=== PATIENT | male | born 1990 ===

== ENCOUNTER 2023-12-31 18:08 | Emergency (ER) | payer SELFPAY ==
[2023-12-31 19:14] VITALS: BP 135/84; PULSE 78; RESP 16; TEMP 37; O2SAT 99; BMI 22.0
--- NOTE | 2023-12-31 20:32 | ED.GENADULT ---
HPI - General Adult General Chief complaint: Skin/Abscess/Foreign Body Stated complaint: rt arm pit rash? Time Seen by Provider: 12/31/23 23:13 Source: patient, RN notes reviewed and old records reviewed Mode of arrival: ambulatory Limitations: no limitations History of Present Illness ED Provider: Ben HPI narrative: 33-year-old male presents for evaluation of a red raised area to his right armpit. Patient states it has been there for the last week He reports subjective fevers for 2 days. He states that he has pain with any kind of movement of his right arm His pain is 10/10 He reports a history of similar several years ago He is not a diabetic The patient recently relocated to the area from [place] and does not have a primary doctor Related Data Previous Rx's ?Medication ?Instructions ?Recorded cephalexin 500 mg capsule 500 mg PO QID #28 caps 01/01/24 oxycodone 5 mg tablet 5 mg PO Q6H PRN severe pain (scale 01/01/24 score 7-10) #12 tabs Allergies Allergy/AdvReac Type Severity Reaction Status Date / Time No Known Allergies Allergy Verified 12/31/23 19:15 Review of Systems Constitutional: Constitutional: Denies body ache(s), Denies chills and Denies fever(s) Eyes: Eyes: Denies floaters ENT: Denies sore throat Integumentary/Breasts: Skin/Breast: Reports erythema, Reports rash, Reports skin swelling, Reports skin ulcer and Denies wounds PMFSH Social History Social History Advance Directives: No Advance Directives Information Provided: No Do you have a plan to hurt others: No Plan Physical Exam ED Vital Signs: Vital Signs - 24 hr 12/31/23 19:14 12/31/23 23:08 01/01/24 02:13 Temperature 98.6 F 98.8 F 98.7 F Pulse Rate 78 72 73 Respiratory Rate 16 20 20 Blood Pressure 135/84 128/76 126/70 Pulse Oximetry 99 100 100 Oxygen Delivery Method Room Air Room Air Room Air BMI result Body Mass Index 22.0 Const General: healthy appearing, comfortable, no acute distress, alert and awake Nutritional Appearance: well nourished Orientation/consciousness: patient oriented x3 HENMT Head: Yes normocephalic and Yes atraumatic Eyes Eyelids: Yes eyelids normal Conjunctivae: conjunctivae normal Sclerae: sclerae normal Corneas: corneas normal Pupils: Equal, round and reactive pupils present EOM: EOMs intact bilaterally Neck Neck: Yes full ROM Resp Effort & Inspection: normal respiratory effort, able to speak in complete sentences and not labored Skin Other: Patient has about a 5 cm area of erythema with fluctuance to the right axilla. There is no active drainage, but there are 2 central whitish boils. The area is exquisitely tender to palpation General skin exam: elasticity normal Neuro General: patient oriented x3 Cranial nerves: Yes Equal, round and reactive pupils present and Yes Bilaterally intact EOM present Cognition (Neuro): normal cognition Extrem Other: Moving all extremities well without any obvious deformities Course Course Course Narrative: RME: Done by STANTON Vaughan. 33-year-old male presents to the ED for right axillary pain. Patient is sent redness swelling mass with drainage. On exam positive for right axillary abscess that is tender on palpation. May need incision and drainage. Patient to be seen in [facility]. Medications Administered Discontinued Medications Generic Name Dose Route Start Last Admin Trade Name Eliezer PRN Reason Stop Dose Admin Cephalexin HCl 500 mg 01/01/24 01:33 01/01/24 01:56 Cephalexin 500 Mg Capsule PO 01/01/24 01:34 500 mg ONCE ONE Administration Lidocaine/Epinephrine 10 ml 01/01/24 00:41 01/01/24 01:09 Lidocaine Hcl 1%/Epi 1:100,000 10 Ml Vial INFILTRATI 01/01/24 00:42 10 ml ONCE ONE Administration Lorazepam 1 mg 12/31/23 23:48 12/31/23 23:57 Lorazepam 1 Mg Tablet PO 12/31/23 23:49 1 mg ONCE ONE Administration Oxycodone HCl 10 mg 12/31/23 23:48 12/31/23 23:56 Oxycodone Hcl Immed Release 5 Mg Tablet PO 12/31/23 23:49 10 mg ONCE ONE Administration Procedures Abscess I/D Site: other (Right axilla) Side (if applicable): right Sedation/analgesia: other (Ativan and oxycodone p.o.) Local Anesthetic: lidocaine 1% and with epi Amount of anesthesia used (mL): 4 Technique: incised with blade Amount of fluid expressed (mL): 10 Sent for culture/gram staining?: No Irrigation: Yes Packing used?: none Complications: pain Medical Decision Making Medical Decision Making MDM Narrative: 33-year-old male presents for evaluation of an abscess to his right axilla. Patient's vital signs as normal limits, no evidence of sepsis. The patient reports subjective fevers but he is afebrile. See procedure note. The procedure was performed by PA Nara prieto under my direct supervision. The patient tolerated the procedure well, there were no complications Differential Diagnosis Differential Diagnoses: The differential diagnosis associated with the presentation includes Abscess Cellulitis Hidradenitis suppurativa Dermatitis Discharge Plan Discharge Clinical Impression: Abscess of skin or subcutaneous tissue Patient Disposition: Home, Self-Care Instructions: Incision and Drainage (ED) Additional Instructions: Use cephalexin every 6 hours for the next week Apply warm compresses every 4 hours for 10-15 minutes Use ibuprofen/Tylenol for pain. You may use oxycodone for more severe breakthrough pain This may make you drowsy, do not drink alcohol or drive after taking it Follow-up with your primary doctor, return for new or worsening symptoms Prescriptions: New cephalexin 500 mg capsule 500 mg PO QID Qty: 28 0RF oxycodone 5 mg tablet 5 mg PO Q6H PRN (Reason: severe pain (scale score 7-10)) Qty: 12 0RF Rx Instructions: Partial Fill upon patient request. Interventions: ED Discharge Assessment Last Done: 01/01/24 02:13 Discharge Date/Time: 01/01/24 02:14 Print Language: Bangladeshi
[2023-12-31 23:08] VITALS: BP 128/76; PULSE 72; RESP 20; TEMP 37.1; O2SAT 100
[2023-12-31] MEDS: oxyCODONE HCl Immed Release 5 MG TABLET 10 MG PO (23:56)
[2023-12-31] MEDS: LORazepam 1 MG TABLET PO (23:57)
[2024-01-01] MEDS: Lidocaine HCl 1%/Epi 1:100,000 10 ML VIAL INFILTRATI (01:09)
[2024-01-01] MEDS: cephALEXin 500 MG CAPSULE PO (01:56)
[2024-01-01 02:13] VITALS: BP 126/70; PULSE 73; RESP 20; TEMP 37.1; O2SAT 100
== END 2024-01-01 02:14 | disposition home or self-care (01) ==
PROVIDERS: Emergency Provider Internal Medicine
DX: L02.411 Cutaneous abscess of right axilla (principal); R50.9 Fever, unspecified
CPT/HCPCS: 10060; 99283; 99284

== ENCOUNTER 2024-04-05 08:46 | Emergency (ER) | payer MEDICAID, SELFPAY ==
[2024-04-05 09:07] VITALS: BP 98/58; PULSE 80; RESP 16; TEMP 36.8; O2SAT 98; BMI 22.9
[2024-04-05 11:27] VITALS: BP 115/67; PULSE 72; RESP 16; TEMP 37.1; O2SAT 97
--- NOTE | 2024-04-05 11:54 | ED.GENADULT ---
HPI - General Adult General Chief complaint: Skin/Abscess/Foreign Body Stated complaint: sore on top of head Time Seen by Provider: 04/05/24 11:28 Source: patient Mode of arrival: ambulatory Limitations: no limitations History of Present Illness ED Provider: Tank Vaughan PA-C HPI narrative: 33 yold male with no pmh presents to the ED for scalp skin lesion for 3 to 4 days. Patient denies any recent head trauma, being bitten, fever, chills, nausea, vomiting, or dizziness. Patient denies any slurred speech, facial droop, loss of vision, paralysis of extremities. Patient denies any photophobia. Related Data Previous Rx's ?Medication ?Instructions ?Recorded cephalexin 500 mg capsule 500 mg PO QID #28 caps 01/01/24 oxycodone 5 mg tablet 5 mg PO Q6H PRN severe pain (scale 01/01/24 score 7-10) #12 tabs cephalexin 500 mg capsule 500 mg PO QID 7 days #28 caps 04/05/24 doxycycline hyclate 100 mg capsule 100 mg PO BID 7 days #14 caps 04/05/24 mupirocin 2 % topical ointment 1 appl topical TID 7 days #22 grams 04/05/24 naproxen 500 mg tablet 500 mg PO BID PRN pain 7 days #14 04/05/24 tabs Allergies Allergy/AdvReac Type Severity Reaction Status Date / Time No Known Allergies Allergy Verified 04/05/24 09:14 Review of Systems Review of Systems: scalp painful rash Yes all other systems are reviewed and are negative PMFSH Social History Social History Advance Directives: No Do you have a plan to hurt others: No Plan Physical Exam ED Vital Signs: Vital Signs - 24 hr 04/05/24 09:07 04/05/24 11:27 04/05/24 12:31 Temperature 98.2 F 98.8 F 98.8 F Pulse Rate 80 72 72 Respiratory Rate 16 16 16 Blood Pressure 98/58 L 115/67 115/67 Pulse Oximetry 98 97 97 Oxygen Delivery Method Room Air Room Air Room Air BMI result Body Mass Index 22.9 Const General: cooperative, healthy appearing, comfortable, no acute distress, well developed, alert, awake and Physically active Orientation/consciousness: patient oriented x3 HENMT Other: Positive for tenderness on palpation. Negative for any active drainage or foul odor. Positive for erythema. Negative for crepitus, ecchymosis, hematomas. Head: Yes normal to inspection, Yes No palpable skull fracture present, Yes normocephalic, Yes atraumatic, No abrasion, No Acrocyanosis present, No Reyes's sign, No contusion, No cranial bruits, No hematoma, No laceration, No occipital foramen tenderness, No palpable skull fracture, No raccoon eyes, No scalp lesion, No scalp tenderness, No Temporal artery tenderness present and No periorbital ecchymosis Eyes General: appearance normal, both eyes and all related structures Neck Neck: Yes normal visual inspection, Yes full ROM, Yes no lymphadenopathy, Yes no meningeal signs, Yes trachea midline, Yes supple, No anterior neck swelling and No tender Chest Chest palpation & inspection: normal inspection of the chest and normal palpation of entire chest wall Resp Effort & Inspection: normal respiratory effort and able to speak in complete sentences Auscultation: clear to auscultation bilaterally Cardio Jugular venous distension: no JVD Heart sounds: S1 normal heart sound present and S2 normal heart sound present GI Inspection: Yes normal to inspection Palpation (GI): Soft to palpation, not firm, nontender, no guarding and not rigid General: Yes no CVA tenderness Back/Spine/Pelvis Back: no CVA tenderness and No back tenderness Skin General skin exam: no rashes or lesions noted, elasticity normal and turgor normal Neuro General: patient oriented x3, gait normal, tone normal, moves all extremities, Normal light touch and pain sensation, no meningeal signs, no focal motor deficits, CN's II-XI intact bilaterally and normal sensation to monofilament Extrem General: Yes normal to inspection, Yes full ROM, Yes capillary refill normal and Yes normal exam except as noted Psych Appearance: grossly normal, well kempt and not disheveled Medical Decision Making Medical Decision Making MDM Narrative: 33-year-old male presents to ED for painful rash on scalp. Negative for rash on face or nose. Negative for rash on the rest of the body. Negative ecchymosis. Not suspecting herpes shingles. Not suspecting brain bleed or skull fracture. Not suspecting Carmine Gunner syndrome. Physical exam indicate cellulitis versus folliculitis. Patient explained worrisome signs and informed to return to the ED immediately. Not suspecting osteomyelitis Differential Diagnosis Differential Diagnoses: The differential diagnosis associated with the presentation includes (Cellulitis, folliculitis,) Admission/Observation Consideration of admission/observation: Escalation of care including admission/observation considered Independent Historian Clinical information obtained from an independent historian. 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 Return to the ED immediately for worsening rash, increased size, pus discharge, foul odor, eye pain, blurry vision, any rash in the face nose, fever, chills, headache, dizziness, nausea, vomiting, or any other concerning symptoms. Recommend warm compress on the area 4 times a day for 15 minutes. [facility] [place], Prescriptions: New mupirocin 2 % ointment 1 appl topical TID 7 Days Qty: 22 0RF cephalexin 500 mg capsule 500 mg PO QID 7 Days Qty: 28 0RF doxycycline hyclate 100 mg capsule 100 mg PO BID 7 Days Qty: 14 0RF naproxen 500 mg tablet 500 mg PO BID PRN (Reason: pain) 7 Days Qty: 14 0RF No Action cephalexin 500 mg capsule 500 mg PO QID Qty: 28 0RF oxycodone 5 mg tablet 5 mg PO Q6H PRN (Reason: severe pain (scale score 7-10)) Qty: 12 0RF Rx Instructions: Partial Fill upon patient request. Stand Alone Forms: Work/School Release Interventions: ED Discharge Assessment Last Done: 04/05/24 12:31 Discharge Date/Time: 04/05/24 12:31 Print Language: Citizen [place]
[2024-04-05 12:31] VITALS: BP 115/67; PULSE 72; RESP 16; TEMP 37.1; O2SAT 97
== END 2024-04-05 12:31 | disposition home or self-care (01) ==
PROVIDERS: Emergency Provider Emergency Medicine Emergency Medical Services
DX: L03.811 Cellulitis of head [any part, except face] (principal); L73.8 Other specified follicular disorders
CPT/HCPCS: 99283

== ENCOUNTER 2024-05-06 18:03 | Outpatient (REF) | payer MEDICAID, SELFPAY | END 2024-05-06 18:04 | disposition home or self-care (01) | LOC: HO.HHCLNP 18:03 | PROVIDERS: Visit Provider Nurse Practitioner | DX: R21 Rash and other nonspecific skin eruption (principal) | CPT/HCPCS: 87255 ==

== ENCOUNTER 2024-07-24 00:08 | Emergency (ER) | payer MEDICAID, SELFPAY ==
--- NOTE | ~2024-07-24 | XR_ITS ---
CLINICAL HISTORY: pain 1 view abdomen Comparison: None Findings: Borderline cardiomegaly likely accentuated by technique with mild atelectasis in the [id number]. No small bowel dilatation. Severe stool burden is present, including imaged cecum and including distally. Mild osteoarthritis of the imaged left hip. IMPRESSION: 1. No small bowel obstruction. 2. Severe stool burden. This document has been electronically signed by: Jose Swanson MD on 07/24/2024 01:33:07
[2024-07-24 00:13] VITALS: BP 118/67; PULSE 88; RESP 18; TEMP 36.4; O2SAT 98; BMI 23.6
--- NOTE | 2024-07-24 00:44 | ED_ITS ---
HPI - General Adult General Chief complaint: General Medical Stated complaint: Urogenital Male Time Seen by Provider: 07/24/24 00:44 Source: patient Limitations: language barrier History of Present Illness ED Provider: Andie Garcia PA-C HPI narrative: 34-year-old male presents with multiple complaints. Patient states he has had low back pain over the past 3 days. Patient states he thinks he lifted something heavy, prior to the onset of his symptoms. The pain is nonradiating. Denies urinary retention, fecal incontinence, weakness of lower extremities, no paresthesia. Patient also complains of bright red blood per rectum when he has bowel movements. Patient states he is chronically constipated, and strains to have a bowel movement. Patient notes the blood on the toilet paper when he wipes. He is not having large volume bloody bowel movements. Denies rectal pain. No fever. No abdominal pain no nausea vomiting. No abdominal distention. Denies dysuria, no penile discharge. Related Data Previous Rx's ?Medication ?Instructions ?Recorded cephalexin 500 mg capsule 500 mg PO QID #28 caps 01/01/24 oxycodone 5 mg tablet 5 mg PO Q6H PRN severe pain (scale 01/01/24 score 7-10) #12 tabs cephalexin 500 mg capsule 500 mg PO QID 7 days #28 caps 04/05/24 doxycycline hyclate 100 mg capsule 100 mg PO BID 7 days #14 caps 04/05/24 mupirocin 2 % topical ointment 1 appl topical TID 7 days #22 grams 04/05/24 naproxen 500 mg tablet 500 mg PO BID PRN pain 7 days #14 04/05/24 tabs ketorolac 10 mg tablet 10 mg PO Q6H PRN pain #20 tabs 07/24/24 methocarbamol 750 mg tablet 750 mg PO BID PRN pain, moderate 07/24/24 #10 tabs Allergies Allergy/AdvReac Type Severity Reaction Status Date / Time No Known Allergies Allergy Verified 07/24/24 00:15 Review of Systems 2 Review of Systems: Yes all other systems are reviewed and are negative Constitutional: Constitutional: Denies fatigue and Denies fever(s) Cardiovascular: Cardiovascular: Denies chest pain and Denies dyspnea Respiratory: Respiratory: Denies cough and Denies dyspnea Gastrointestinal: Gastrointestinal: Denies abdominal pain, Reports constipation, Denies nausea and Denies vomiting Genitourinary: Genitourinary: Denies dysuria, Denies flank pain and Denies penile discharge Musculoskeletal: Musculoskeletal: Reports back pain, Denies muscle weakness, Denies numbness, Denies radiating pain into limb and Denies tingling Neurologic: Denies numbness and Denies tingling Endocrine: Endocrine: Denies fatigue PMFSH Past Medical History Attestation statement: The following information was validated with the patient. Social History Social History (System 05/10/24 @ 10:37 by Magdalena Wong) Advance Directives: No Advance Directives Information Provided: Yes Do you have a plan to hurt others: No Plan Physical Exam ED Vital Signs: Vital Signs - 24 hr 07/24/24 00:13 Temperature 97.5 F Pulse Rate 88 Respiratory Rate 18 Blood Pressure 118/67 Pulse Oximetry 98 Oxygen Delivery Method Room Air BMI result Body Mass Index 23.6 Const Other: Alert Orientation/consciousness: patient oriented x3 Resp Effort & Inspection: normal respiratory effort Cardio Other: Normal peripheral perfusion Skin Other: Warm dry no rash Neuro General: patient oriented x3, gait normal, no focal motor deficits and CN's II- XI intact bilaterally Psych Other: Cooperative Medical Decision Making Medical Decision Making MDM Narrative: 34-year-old male presents with multiple complaints. Patient states he has had low back pain over the past 3 days. Patient states he thinks he lifted something heavy, prior to the onset of his symptoms. The pain is nonradiating. Denies urinary retention, fecal incontinence, weakness of lower extremities, no paresthesia. Patient also complains of bright red blood per rectum when he has bowel movements. Patient states he is chronically constipated, and strains to have a bowel movement. Patient notes the blood on the toilet paper when he wipes. He is not having large volume bloody bowel movements. Denies rectal pain. No fever. No abdominal pain no nausea vomiting. No abdominal distention. Denies dysuria, no penile discharge. Problem: Constipation History: Per patient I have considered the following differential diagnoses: Constipation, bowel obstruction, lumbar strain, lumbar radiculopathy, cauda equina, hemorrhoids, diverticulosis Plan: In regard to the back pain, patient has lumbar strain without radicular symptoms, he also has no red flag signs symptoms concerning for cord compression. In regard to the constipation, I ordered screening labs and a KUB. To note he has no obstructive symptoms at this time and no abdominal pain. In regard to the bright red blood per rectum, it sounds as if he is having bleeding from straining, he has no rectal pain to suggest a thrombosed hemorrhoid. Again he has no abdominal pain, to suggest diverticulitis. He does not warrant a CT scan at this time. I have independently reviewed the following tests: Labs: No leukocytosis, not anemic, no electrolyte abnormality, urine not infected KUB:IMPRESSION: 1. No small bowel obstruction. 2. Severe stool burden. Lab Data 07/24/24 01:15 07/24/24 01:15 Labs: Lab Results 07/24/24 Range/Units 01:15 WBC 11.0 H (4.8-10.8) X10*3/uL RBC 4.05 L (4.60-5.80) X10*6/uL Hgb 13.1 L (14.0-18.0) g/dl Hct 36.1 L (42.0-52.0) % MCV 89.1 (80.0-98.0) fL MCH 32.3 (27.0-33.0) pg MCHC 36.3 H (31.0-36.0) g/dl RDW 13.1 (11.0-16.0) % Plt Count 338 (160-400) X10*3/uL MPV 8.8 L (9.4-12.4) fL Immature Gran % (Auto) 0.2 (0.0-0.4) % Neut % (Auto) 53.7 (45-73) % Lymph % (Auto) 31.3 (20-40) % [place] % (Auto) 8.2 (2-11) % Eos % (Auto) 6.0 H (0-4) % Baso % (Auto) 0.6 (0-2) % Lymph # (Auto) 3.5 (1.2-4.9) X10*3/uL [place] # (Auto) 0.9 (0.1-1.2) X10*3/uL Eos # (Auto) 0.7 H (0.0-0.4) X10*3/uL Baso # (Auto) 0.1 (0.0-0.2) X10*3/uL Abs Immat Gran (auto) 0.02 (0.00-0.03) X10*3/uL Absolute Neuts (auto) 5.9 (2.0-8.3) x10*3/uL Absolute Nucleated RBC 0.000 (0.0-0.012) X10*3/uL Nucleated RBC % (auto) 0.0 (0.0-0.2) /100WBC Sodium 141 (135-145) mmol/L Potassium 4.0 (3.3-5.1) mmol/L Chloride 103 (96-108) mmol/L Carbon Dioxide 29 (22-29) mmol/L Anion Gap 13 (12-20) BUN 11 (9-16) mg/dL Creatinine 0.73 (0.5-1.4) mg/dL Estim Creat Clear Calc 141.2 Estimated GFR > 60 Random Glucose 92 (60-115) mg/dL Calcium 9.7 (8.4-10.2) mg/dL Total Bilirubin 0.5 (0.0-1.0) mg/dL AST 42 H (5-37) U/L ALT 37 (0-40) U/L Total Protein 7.5 (6.5-8.0) g/dL Albumin 4.2 (3.5-5.0) g/dL Urine Color Dark Yellow Urine Appearance Clear Urine pH 6.0 (5.0-9.0) Ur Specific [place] 1.020 (1.005-1.025) Urine Protein Negative (Neg-Trace) mg/dL Urine Glucose (UA) Negative (Negative) mg/dL Urine Ketones Negative (Negative) mg/dL Urine Blood Negative (Negative) Urine Nitrite Negative (Negative) Ur Leukocyte Esterase Negative (Negative) Discharge Plan Discharge Clinical Impression: Constipation, Osteoarthritis of left hip Patient Disposition: Home, Self-Care Instructions: Constipation (ED), Osteoarthritis (ED) Additional Instructions: All of your labs were normal, your urine is not infected. The x-ray revealed that you were severely constipated. See home care instructions. You need to start using Colace, this is a stool softener, twice a day. In addition you need to use [id number] MiraLax, drank it every hour until you begin having multiple large volume bowel movements, and he began to defecate clear fluid. In regard to the rectal bleeding, you can expect to have bleeding when you strain to have a bowel movement. In regard to your back pain, you were found to have some arthritic changes of the left hip. See home care instructions. Use the ketorolac as directed, this is an anti-inflammatory take it with food. Do not use any other NSAIDs while taking this medication. Use the methocarbamol as needed for further pain, this is a muscle relaxant. This will cause drowsiness do not drive while taking this medication. Follow up with your primary care provider as needed. Prescriptions: New ketorolac 10 mg tablet 10 mg PO Q6H PRN (Reason: pain) Qty: 20 0RF Rx Instructions: maximum total duration of 5 days from all oral, intranasal, or parenteral formulations. The patient had an intramuscular dose of Toradol here in the emergency department. methocarbamol 750 mg tablet 750 mg PO BID PRN (Reason: pain, moderate) Qty: 10 0RF No Action cephalexin 500 mg capsule 500 mg PO QID Qty: 28 0RF oxycodone 5 mg tablet 5 mg PO Q6H PRN (Reason: severe pain (scale score 7-10)) Qty: 12 0RF Rx Instructions: Partial Fill upon patient request. mupirocin 2 % ointment 1 appl topical TID 7 Days Qty: 22 0RF cephalexin 500 mg capsule 500 mg PO QID 7 Days Qty: 28 0RF doxycycline hyclate 100 mg capsule 100 mg PO BID 7 Days Qty: 14 0RF naproxen 500 mg tablet 500 mg PO BID PRN (Reason: pain) 7 Days Qty: 14 0RF Print Language: Greek
[2024-07-24 01:20] LABS: MANUAL DIFF FLAG NO
[2024-07-24 01:21] LABS: Appearance Urine Clear; Basophils Absolute Auto 0.1 X10*3/uL (0.0-0.2); Basophils Percent Auto 0.6 % (0-2); Color Urine Dark Yellow; Eosinophils Absolute Auto 0.7 X10*3/uL (0.0-0.4); Glucose Urine UA Negative (Negative); Hematocrit 36.1 % (42.0-52.0); Hemoglobin 13.1 g/dl (14.0-18.0); Imm Gran Abs Auto 0.02 X10*3/uL (0.00-0.03); Imm Gran Pct Auto 0.2 % (0.0-0.4); Leukocyte Esterase Urine Negative (Negative); Lymphocytes Absolute Auto 3.5 X10*3/uL (1.2-4.9); Lymphocytes Percent Auto 31.3 % (20-40); Mean Corpuscular HGB Conc 36.3 g/dl (31.0-36.0); Mean Corpuscular Hemoglobin 32.3 pg (27.0-33.0); Mean Corpuscular Volume 89.1 fL (80.0-98.0); Mean Platelet Volume 8.8 fL (9.4-12.4); Monocytes Absolute Auto 0.9 X10*3/uL (0.1-1.2); Monocytes Percent Auto 8.2 % (2-11); Neutrophils Absolute Auto 5.9 x10*3/uL (2.0-8.3); Neutrophils Percent Auto 53.7 % (45-73); Nitrite Urine Negative (Negative); Platelet Count 338 X10*3/uL (160-400); Red Blood Count 4.05 X10*6/uL (4.60-5.80); Red Cell Distribution Width 13.1 % (11.0-16.0); Urine Blood Negative (Negative); Urine Ketones Negative (Negative); Urine Protein Negative (Neg-Trace)
[2024-07-24 01:42] LABS: Alanine Aminotransferase 37 U/L (0-40); Albumin Level 4.2 g/dL (3.5-5.0); Anion Gap 13 (12-20); Aspartate Amino Transferase 42 U/L (5-37); Bilirubin Total 0.5 mg/dL (0.0-1.0); Blood Urea Nitrogen 11 mg/dL (9-16); Calcium 9.7 mg/dL (8.4-10.2); Carbon Dioxide 29 mmol/L (22-29); Chloride 103 mmol/L (96-108); Creatinine Clr Calc Pharmacy 141.2; Estimated Glomerular Filt Rate > 60; Glucose Random 92 mg/dL (60-115); Sodium 141 mmol/L (135-145); Total Protein 7.5 g/dL (6.5-8.0)
[2024-07-24] MEDS: methocarbamoL 750 MG TABLET PO (01:54)
[2024-07-24] MEDS: Ketorolac Tromethamine 15 MG/ML VIAL IM (01:54)
[2024-07-24 02:10] LABS: Alkaline Phosphatase 55 U/L (39-117)
[2024-07-24 02:44] VITALS: BP 118/67; PULSE 88; RESP 18; TEMP 36.4; O2SAT 98
== END 2024-07-24 02:46 | disposition home or self-care (01) ==
PROVIDERS: Physician Assistant Medical; Emergency Provider Emergency Medicine
DX: K59.00 Constipation, unspecified (principal); M16.12 Unilateral primary osteoarthritis, left hip; K62.5 Hemorrhage of anus and rectum; Z79.899 Other long term (current) drug therapy
CPT/HCPCS: 36415; 74018; 80053; 81003; 85025; 96372; 99284; J1885

== ENCOUNTER → 2024-07-24 00:45 | Outpatient (BNV) | payer MEDICAID, SELFPAY | PROVIDERS: Emergency Provider Emergency Medicine; Visit Provider Radiology Neuroradiology | DX: R19.5 Other fecal abnormalities (principal) | CPT/HCPCS: 74018 ==

== ENCOUNTER 2024-10-12 21:11 | Emergency (ER) | payer MEDICAID, SELFPAY ==
[2024-10-12 21:24] VITALS: BP 107/72; PULSE 94; RESP 18; TEMP 36.7; O2SAT 99; BMI 24.0
--- NOTE | 2024-10-12 22:31 | ED_ITS ---
HPI - Wound/Laceration General Chief Complaint: Wound/Laceration Stated Complaint: left thumb laceration Time Seen by Provider: 10/12/24 21:55 Source: patient Mode of arrival: ambulatory Limitations: no limitations History of Present Illness ED Provider: Eulalia Zapien NP HPI narrative: Patient is a 34-year-old male presents emergency department for evaluation of accidental laceration to the left thumb from kitchen knife. Reports last tetanus vaccination up-to-date within the past 5 years. Denies use of anticoagulants or known coagulation disorders. Has localized pain to the thumb. Related Data Previous Rx's ?Medication ?Instructions ?Recorded cephalexin 500 mg capsule 500 mg PO QID #28 caps 12/31 oxycodone 5 mg tablet 5 mg PO Q6H PRN severe pain (scale 01/01/24 score 7-10) #12 tabs cephalexin 500 mg capsule 500 mg PO QID 7 days #28 cap s 04/05/24 doxycycline hyclate 100 mg capsule 100 mg PO BID 7 day s #14 caps 04/05/24 mupirocin 2 % topical ointment 1 appl topical TID 7 da ys #22 grams 04/05/24 naproxen 500 mg tablet 500 mg PO BID PRN pain 7 day s #14 04/05/24 tabs ketorolac 10 mg tablet 10 mg PO Q6H PRN pain #20 ta bs 07/24/24 methocarbamol 750 mg tablet 750 mg PO BID PRN pain, mo derate 07/24/24 #10 tabs Allergies Allergy/AdvReac Type Severity Reaction Status Date / Time No Known Allergies Allergy Verified 10/12/24 21:24 Review of Systems Review of Systems: Yes all other systems are reviewed and are negative PMFSH Past Medical History Attestation statement: The following information was validated with the patient. Source: old records reviewed Social History Social History (System 05/10/24 @ 10:37 by Magdalena Wong) Smoked in Last 30 Days: No Use of substances other than those prescribed or required for medical reasons: No Advance Directives: No Advance Directives Information Provided: Yes Physical Exam Vital Signs: Vital Signs: Last Vital Signs Temp 98.0 F 10/12/24 23:22 Pulse 72 10/12/24 23:22 Resp 16 10/12/24 23:22 BP 124/81 10/12/24 23:22 Pulse Ox 99 10/12/24 23:22 O2 Del Method Room Air 10/12/24 23:22 BMI result Body Mass Index 24.0 Appearance: Alert.?Oriented to person, place and time. No acute dis tress.?Normal affect. CVS: Heart sounds normal. Normal heart rate and rhythm.? Pulses normal.?? Respiratory: No respiratory distress.? Lung sounds clear to auscultation bilaterally??? Skin: Skin warm and dry.? Normal skin color.? 1 Cm superficial laceration to the distal tip of the left thumb does not involve the nail bed Extremities: No lower extremity edema.? Neuro: Moves all extremities spontaneously. Sensation intact bilaterally. Ambulates with normal steady gait. Medications Administered Discontinued Medications Generic Name Dose Route Start Last Admin Trade Name Freq PRN Reason Stop Dose Admin Ketorolac Tromethamine 15 mg 10/12/24 22:51 10/12/24 22:57 Ketorolac Tromethamine 15 Mg/Ml Vial IM 10/12/24 22:52 15 mg ONCE ONE Administration Medical Decision Making Medical Decision Making MDM Narrative: Patient is a 34-year-old male who presents emergency department for evaluation of accidental laceration to the distal tip of the left thumb as per HPI. The laceration is very superficial, wound edges are well approximated there was no active bleeding. Was cleansed with saline and Betadine. Remained without active bleeding. Reviewed laceration repair techniques, skin adhesive versus suture repair, patient has elected for skin adhesive which I feel is reasonable given the presentation. Hemostasis remains, adhesive was applied. Tolerated well no complications. Discussed reasons to return including fevers or chills, erythema, swelling, pain, purulence or odor from the wound. All questions answered. Tetanus vaccination was up-to-date. Stable for discharge Differential Diagnosis Differential Diagnoses: The differential diagnosis associated with the presentation includes ( laceration, retained foreign body, tendon or ligamentous injury, active bleeding) External Record Review External record reviewed: Outpatient record Prescription Management I considered prescription management with: Pain Medication Discharge Plan Discharge Clinical Impression: Finger laceration Qualifiers: Encounter type: initial encounter Finger: thumb Damage to nail status: without damage Foreign body presence: without foreign body Laterality: left Qualified Code(s): S61.012A - Laceration without foreign body of left thumb without damage to nail, initial encounter Patient Disposition: Home, Self-Care Instructions: Finger Laceration (ED), Skin Adhesive Care (ED) Prescriptions: No Action cephalexin 500 mg capsule 500 mg PO QID Qty: 28 0RF oxycodone 5 mg tablet 5 mg PO Q6H PRN (Reason: severe pain (scale score 7-10)) Qty: 12 0RF Rx Instructions: Partial Fill upon patient request. mupirocin 2 % ointment 1 appl topical TID 7 Days Qty: 22 0RF cephalexin 500 mg capsule 500 mg PO QID 7 Days Qty: 28 0RF doxycycline hyclate 100 mg capsule 100 mg PO BID 7 Days Qty: 14 0RF naproxen 500 mg tablet 500 mg PO BID PRN (Reason: pain) 7 Days Qty: 14 0RF ketorolac 10 mg tablet 10 mg PO Q6H PRN (Reason: pain) Qty: 20 0RF Rx Instructions: maximum total duration of 5 days from all oral, intranasal, or parenteral formulations. The patient had an intramuscular dose of Toradol here in the emergency department. methocarbamol 750 mg tablet 750 mg PO BID PRN (Reason: pain, moderate) Qty: 10 0RF Referrals: [facility] [Primary Care Provider, Medical] Interventions: ED Discharge Assessment Last Done: 10/13/24 00:00 Print Language: Australian
[2024-10-12] MEDS: Ketorolac Tromethamine 15 MG/ML VIAL IM (22:57)
[2024-10-12 23:22] VITALS: BP 124/81; PULSE 72; RESP 16; TEMP 36.7; O2SAT 99
[2024-10-13] VITALS: BP 124/81; PULSE 72; RESP 16; TEMP 36.7; O2SAT 99
== END 2024-10-13 00:01 | disposition home or self-care (01) ==
PROVIDERS: Emergency Provider Internal Medicine
DX: S61.012A Laceration without foreign body of left thumb without damage to nail, initial encounter (principal); M79.642 Pain in left hand; W26.0XXA Contact with knife, initial encounter; Y93.9 Activity, unspecified; Y92.009 Unspecified place in unspecified non-institutional (private) residence as the place of occurrence of the external cause; Y99.8 Other external cause status
CPT/HCPCS: 12001; 96372; 99284; J1885

== ENCOUNTER 2024-11-10 16:06 | Outpatient (REF) | payer MEDICAID, SELFPAY ==
--- NOTE | ~2024-11-10 | XR_ITS ---
EXAMINATION: XR FOOT, RIGHT CLINICAL INFORMATION: Blunt injury to right foot (5th toe) and metatarsal area. COMPARISON: None available. TECHNIQUE: AP, lateral, and oblique views of the right foot. FINDINGS: There is a mildly angulated and mildly displaced fracture of the proximal metatarsal of the proximal phalanx of the fifth digit. There is overlying soft tissue swelling. There is no additional fracture or focal bone lesion. There is otherwise normal alignment. Normal plantar arch. The midfoot and hindfoot appear normal. XR/XR foot RT min 3V IMPRESSION: 1. Mildly angulated and mildly displaced fracture of the proximal metatarsal of the proximal phalanx of the fifth digit. Electronically signed by: Boom Jorgensen MD 11/10/2024 04:29 PM EDT
--- OUTSIDE RECORDS SUMMARY | 2024-11-10 16:00 | XMS_ITS | Encounter Summary ---
Author Organization [employer] [facility] Address [address] [place] [address] Care Team Providers Care Fpga Engineer Name Role Phone Simi Dawn NP Primary Care Provider [phone] Reason for Visit * Reason Comments Foot Pain Encounter Details Date Type Department Care Team ([facility] Contact Info) Description 11/10/2024 4:00 PM EDT Office Visit [facility] [address] [place] [address] Right foot pain (Primary Dx) Social History Tobacco Use Types Packs/Day Years Used Date Smoking Tobacco: Every Day Cigarettes Passive Smoke Exposure: Past Smokeless Tobacco: Never Tobacco Cessation:Ready to Q uit: Not Asked; Counseling Given: Not Answered Sex and Gender Information Value Date Recorded Sex Assigned at Male 05/06/2024 12:34 PM EST Legal Sex Male 10:41 AM EST Gender Identity Male 05/06/2024 12:34 PM EST Sexual Orientation Don't know 05/06/2024 3: 57 PM EST Sexual Orientation Straight 05/06/2024 3: 57 PM EST documented as of this encounter Last Filed Vital Signs Vital Sign Reading Time Taken Comments Blood Pressure 125/78 11/10/2024 3:49 PM EDT Pulse 79 11/10/2024 3:49 PM EDT Temperature 36.7 C (98.1 F) 11/10/2024 3:49 PM EDT Respiratory Rate 19 11/10/2024 3:49 PM EDT Oxygen Saturation - - Inhaled Oxygen Concentration - - Weight 75.4 kg (166 lb 3.2 oz) 11/10/2024 3:49 P M EDT Height 175.3 cm (5' 9 ) 11/10/2024 3:49 PM EDT Body Mass Index 24.54 11/10/2024 3:49 PM EDT documented in this encounter Plan of Treatment Upcoming Encounters Date Type Department Care Team (Late Contact Info) Description 11/15/2024 10:30 AM EDT Office Visit [facility] [address] [place] [address] Adan Ellis DDS [address] [place] [address] Scheduled Orders Name Type Priority Associated Diagnoses Orde r Schedule XR Foot 3+ Views Right Imaging Routine Right foot pain Expected: 11/10/2024, Expires: 11/10/2025 documented as of this encounter Visit Diagnoses Diagnosis Right foot pain- Primary Pain in soft tissues of limb documented in this encounter Care Teams Fpga Engineer Relationship Specialty Start Date End Date Simi Dawn NP [address] [place] [address] PCP - General Family Medicine 05/06/24 documented as of this encounter
== END 2024-11-10 16:07 | disposition home or self-care (01) ==
LOC: HO.HHCX 16:06
PROVIDERS: Visit Provider Family Medicine
DX: M79.671 Pain in right foot (principal)
CPT/HCPCS: 73630

== ENCOUNTER → 2024-11-10 16:06 | Outpatient (BNV) | payer MEDICAID, SELFPAY | PROVIDERS: Visit Provider Radiology Diagnostic Radiology | DX: S92.351A Displaced fracture of fifth metatarsal bone, right foot, initial encounter for closed fracture (principal) | CPT/HCPCS: 73630 ==

== ENCOUNTER 2025-02-21 17:17 | Emergency (ER) | payer MEDICAID, SELFPAY ==
--- NOTE | 2025-02-21 17:30 | ED.GENADULT ---
[facility] - General Adult General Chief complaint: Altered Mental Status Stated complaint: smoked cigarette with PCP n/v Time Seen by Provider: 02/21/25 17:30 Source: patient Mode of arrival: ambulatory Limitations: language barrier History of Present Illness ED Provider: Dr. Elizabeth HPI narrative: This is a 34-year-old male presented hospital today for altered mentation after smoking marijuana. Potentially lays with the PCP. Patient was altered. Jerking. Unable to provide any meaningful history at this time as the patient's altered Related Data Previous Rx's ?Medication ?Instructions ?Recorded cephalexin 500 mg capsule 500 mg PO QID #28 caps 01/01/24 oxycodone 5 mg tablet 5 mg PO Q6H PRN severe pain (scale 01/01/24 score 7-10) #12 tabs cephalexin 500 mg capsule 500 mg PO QID 7 days #28 caps 04/05/24 doxycycline hyclate 100 mg capsule 100 mg PO BID 7 days #14 caps 04/05/24 mupirocin 2 % topical ointment 1 appl topical TID 7 days #22 grams 04/05/24 naproxen 500 mg tablet 500 mg PO BID PRN pain 7 days #14 04/05/24 tabs ketorolac 10 mg tablet 10 mg PO Q6H PRN pain #20 tabs 07/24/24 methocarbamol 750 mg tablet 750 mg PO BID PRN pain, moderate 07/24/24 #10 tabs Allergies Allergy/AdvReac Type Severity Reaction Status Date / Time No Known Allergies Allergy Verified 02/21/25 17:36 Review of Systems Review of Systems: Unable to obtain review of systems due to altered mentation [facility] Past Medical History [facility] Narrative: Unable to obtain due to altered mentation Social History Social History (System 05/10/24 @ 10:37 by Magdalena Wong) Smoked in Last 30 Days: Yes Use of substances other than those prescribed or required for medical reasons: Yes Substance Use Type: Marijuana, Opiates, Painkillers and Unknown Advance Directives: No Advance Directives Information Provided: No Physical Exam ED Exam Exam: General: Appears with sleep encephalopathic Head: Normacephalic, atraumatic ENT: oral mucosa moist, neck supple, no tracheal deviation Cardiovascular: regular rate, regular rhythm, no murmurs, rubbing, gallops Respiratory: CTAB, no wheeze, rales, rhonchi Neurological: Appears encephalopathic moving all 4 extremity Vital Signs: Vital Signs - 24 hr 02/21/25 17:31 02/21/25 18:35 02/21/25 20:09 Temperature 98.1 F 98.1 F Pulse Rate 89 89 78 Respiratory Rate 18 18 16 Blood Pressure 130/94 H 111/72 136/84 Pulse Oximetry 96 95 99 Oxygen Delivery Method Room Air Room Air Room Air BMI result Body Mass Index 22.8 Medications Administered Discontinued Medications Generic Name Dose Route Start Last Admin Trade Name Eliezer PRN Reason Stop Dose Admin Naloxone HCl 2 mg 02/21/25 17:55 02/21/25 18:34 Naloxone Hcl 2 Mg/2 Ml Syringe IVPUSH 02/21/25 17:56 2 mg ONCE ONE Administration Medical Decision Making Medical Decision Making [facility] Narrative: 34-year-old male presented hospital today for altered mentation. I suspect patient is likely on influence on substance. Airways intact. He has protect his airway. I did give a trial dose of IV Narcan without any change in his status. We will continue to observe the patient has a metabolize. Patient does have elevated leukocytosis at 18.2. I have low suspicion of infection for the patient. No fever no tachycardia. I suspect this is stress reactive from his drug usage. Reassessment the patient is back to his baseline behavior. He is awake and alert. Does not appear to be acute distress. He is oriented as well. Plan to discharge patient at this time. Differential Diagnosis Differential Diagnoses: The differential diagnosis associated with the presentation includes Altered mentation, marijuana usage, PCP, opioid overdose Lab Data [facility] Lab Attestation statement: I reviewed the patient's lab results. 02/21/25 18:24 02/21/25 18:24 Labs: Lab Results 02/21/25 Range/Units 18:24 WBC 18.2 H (4.8-10.8) X10*3/uL RBC 4.57 L (4.60-5.80) X10*6/uL Hgb 14.5 (14.0-18.0) g/dl Hct 41.4 L (42.0-52.0) % MCV 90.6 (80.0-98.0) fL MCH 31.7 (27.0-33.0) pg MCHC 35.0 (31.0-36.0) g/dl RDW 13.2 (11.0-16.0) % Plt Count 350 (160-400) X10*3/uL MPV 8.7 L (9.4-12.4) fL Immature Gran % (Auto) 0.4 (0.0-0.4) % Neut % (Auto) 78.3 H (45-73) % Lymph % (Auto) 14.0 L (20-40) % Duchesne % (Auto) 5.6 (2-11) % Eos % (Auto) 1.4 (0-4) % Baso % (Auto) 0.3 (0-2) % Lymph # (Auto) 2.6 (1.2-4.9) X10*3/uL Duchesne # (Auto) 1.0 (0.1-1.2) X10*3/uL Eos # (Auto) 0.3 (0.0-0.4) X10*3/uL Baso # (Auto) 0.1 (0.0-0.2) X10*3/uL Abs Immat Gran (auto) 0.07 H (0.00-0.03) X10*3/uL Absolute Neuts (auto) 14.2 H (2.0-8.3) x10*3/uL Absolute Nucleated RBC 0.000 (0.0-0.012) X10*3/uL Nucleated RBC % (auto) 0.0 (0.0-0.2) /100WBC Sodium 143 (135-145) mmol/L Potassium 3.6 (3.3-5.1) mmol/L Chloride 113 H (96-108) mmol/L Carbon Dioxide 23 (22-29) mmol/L Anion Gap 11 L (12-20) BUN 12 (9-16) mg/dL Creatinine 1.45 H (0.5-1.4) mg/dL Estim Creat Clear Calc 72.4 Estimated GFR 55 Random Glucose 89 (60-115) mg/dL Calcium 8.3 L D (8.4-10.2) mg/dL Discharge Plan Discharge Clinical Impression: Altered mental status Patient Disposition: Home, Self-Care Additional Instructions: Be careful of what you smoke next time. Prescriptions: No Action cephalexin 500 mg capsule 500 mg PO QID Qty: 28 0RF oxycodone 5 mg tablet 5 mg PO Q6H PRN (Reason: severe pain (scale score 7-10)) Qty: 12 0RF Rx Instructions: Partial Fill upon patient request. mupirocin 2 % ointment 1 appl topical TID 7 Days Qty: 22 0RF cephalexin 500 mg capsule 500 mg PO QID 7 Days Qty: 28 0RF doxycycline hyclate 100 mg capsule 100 mg PO BID 7 Days Qty: 14 0RF naproxen 500 mg tablet 500 mg PO BID PRN (Reason: pain) 7 Days Qty: 14 0RF ketorolac 10 mg tablet 10 mg PO Q6H PRN (Reason: pain) Qty: 20 0RF Rx Instructions: maximum total duration of 5 days from all oral, intranasal, or parenteral formulations. The patient had an intramuscular dose of Toradol here in the emergency department. methocarbamol 750 mg tablet 750 mg PO BID PRN (Reason: pain, moderate) Qty: 10 0RF Print Language: Unable To Collect
[2025-02-21 17:31] VITALS: BP 130/80; BP 130/94; PULSE 126; PULSE 89; RESP 18; TEMP 36.7; O2SAT 96; O2SAT 99; BMI 22.8
--- NOTE | 2025-02-21 17:47 | PC.NURSE ---
vomiting at times. also states he took a percocet for back pain.
[2025-02-21 18:30] LABS: Hematocrit 41.4 % (42.0-52.0); Hemoglobin 14.5 g/dl (14.0-18.0); Imm Gran Abs Auto 0.07 X10*3/uL (0.00-0.03); Imm Gran Pct Auto 0.4 % (0.0-0.4); Lymphocytes Absolute Auto 2.6 X10*3/uL (1.2-4.9); MANUAL DIFF FLAG NO; Mean Corpuscular HGB Conc 35.0 g/dl (31.0-36.0); Mean Corpuscular Hemoglobin 31.7 pg (27.0-33.0); Mean Corpuscular Volume 90.6 fL (80.0-98.0); NRBC Abs Auto 0.000 X10*3/uL (0.0-0.012); NRBC Pct Auto 0.0 /100WBC (0.0-0.2); Platelet Count 350 X10*3/uL (160-400); Red Blood Count 4.57 X10*6/uL (4.60-5.80); White Blood Count 18.2 X10*3/uL (4.8-10.8)
[2025-02-21 18:35] VITALS: BP 111/72; PULSE 89; RESP 18; O2SAT 95
--- OUTSIDE RECORDS SUMMARY | 2025-02-21 18:45 | XMS_ITS | Clinical Summary ---
Author Organization [employer] Address [address] [place] [address] Care Team Providers Care Power Washer Name Role Phone Simi Dawn NP Primary Care Provider [phone] Allergies No known active allergies Medications hydrocortisone 2.5 % creamIndication s:Rash of penis Apply topically to affected area two times daily for 7 days. May repeat for additional 7 days if persistent symptoms 15 g Active Active Problems Problem Noted Date Diagnosed Date Known health problems: none 09/30/2024 Encounters Date Type Department Care Team Description 02/20/2025 Patient Outreach [facility] [address] [place] [address] Simi Dawn NP Pre-visit Planning ([facility] unable to reach [facility] ) 12/12/2024 10:15 AM EDT Office Visit [address] [address] Simi Dawn NP Chronic bilateral low back pain, unspecified whether sciatica present (Primary Dx); Chronic pain of both ankles; Chronic pain of both feet 12/12/2024 Travel 12/09/2024 Telephone [facility] [address] [place] [address] Simi Dawn NP CHART PREP 12/09/2024 Telephone [facility] [address] [place] [phone] Anayeli Segura [place] rescheduled 12/09/24 appt 12/08/[address] [address] Simi Dawn NP 12/08/[address] [address] Kiran Giron [place] chart prep 12/07/2024 6:00 PM EDT Office Visit [facility] [address] [place] [address] Simi Dawn NP Skin ulcer of face, limited to breakdown of skin (CMS/HCC) (Primary Dx) 12/07/2024 Travel 12/03/2024 9:00 AM EDT Office Visit [facility] [address] [place] [address] Suzie Batista MD Facial cellulitis (Primary Dx); Hordeolum externum of left lower eyelid 12/03/2024 Travel from Last 3 Months Social History Tobacco Use Types Packs/Day Years Used Date Smoking Tobacco: Every Day Cigarettes Passive Smoke Exposure: Current Smokeless Tobacco: Never Tobacco Cessation:Ready to Q uit: Not Asked; Counseling Given: Not Answered Depression Answer Date Recorded Patient Health Questionnaire-9 Score 7 12/12/2024 Patient Health Questionnaire-9 Score 7 12/12/2024 Last PHQ-9: Questionnaire Data Not on file 0 12/12/2024 Housing Stability Answer Date Recorded What is your housing situation today? I do not have housing (Staying with others, in a hotel, in a fci, living outside on the street, on a beach, in a car, or in a park 12/12/[address] you li ve. Do you have problems with any of the following? None of the above 12/12/2024 Food Insecurity Answer Date Recorded Within the past 12 months, y ou worried that your food would run out before you got money to buy more: Sometimes True 2024 Within the past 12 months,th e food you bought just didn't last and you didn't have enough money to get more: Sometimes True 12/12/2024 Transportation Answer Date Recorded In the past 12 months, has l ack of transportation kept you from medical appts, meetings, work or from getting things needed for daily living? Yes, it has kept me from medical appointments or getting medications. 12/12/2024 Utilities Answer Date Recorded In the past 12 months, has t he electric, gas, oil or water company threatened to shut off services in your home? No 12/12/2024 Depression Answer Date Recorded Patient Health Questionnaire-2 Score 0 12/12/2024 Internet Access Answer Date Recorded Internet Access Q1 Yes 12/12/2024 Internet Access Q2 Not on file 12/12/2024 Sex and Gender Information Value Date Recorded Sex Assigned at Male 05/06/2024 12:34 PM EST Legal Sex Male 10:41 AM EST Gender Identity Male 05/06/2024 12:34 PM EST Sexual Orientation Don't know 05/06/2024 3: 57 PM EST Sexual Orientation Straight 05/06/2024 3: 57 PM EST Last Filed Vital Signs Vital Sign Reading Time Taken Comments Blood Pressure 120/76 12/12/2024 10:28 AM EDT Pulse 72 12/12/2024 10:28 AM EDT Temperature 36.6 C (97.9 F) 12/12/2024 10:28 AM EDT Respiratory Rate 18 12/12/2024 10:28 AM EDT Oxygen Saturation 99% 12/12/2024 10:28 AM EDT Inhaled Oxygen Concentration - - Weight 73.6 kg (162 lb 3.2 oz) 12/12/2024 10:28 AM EDT Height 175.3 cm (5' 9 ) 12/12/2024 10:28 AM EDT Body Mass Index 23.95 12/12/2024 10:28 AM EDT Plan of Treatment Upcoming Encounters Date Type Department Care Team (Late st Contact Info) Description 02/27/2025 2:00 PM EST Office Visit [facility] [address] [place] [address] Simi Dawn NP [address] [place] [address] Health Maintenance Due Date Last Done Comments Dental Oral Exam 1989 Dental Prophylaxis 1989 Dental X-Ray: Bitewings 1989 Dental X-Ray: Full Mouth 1989 HIV Screening 1989 Lipid Panel 1989 Family Planning (PISQ) 2004 HPV Vaccines (1 - Male 3-dos e series) 2004 Hepatitis C Screening 07/17/2007 DTaP/Tdap/Td Vaccines (1 - Tdap) 2008 Hepatitis B Vaccines (1 of 3 - 19+ 3-dose series) 2008 Pneumococcal Vaccine: Pediatrics (0 to 5 Years) and At-Risk Patients (6 to 49) Years (1 of 2 - PCV) 2008 COVID-19 Vaccine (1 - 2023-2 5 season) 2024 Influenza Vaccine (#1) 2024 Alcohol/Substance Use Screening 12/12/2025 12/12/2024 Depression Screening 12/12/2025 12/12/2024, 12/12/2024 Disability Screening 12/12/2025 12/12/2024 SDOH Screening 12/12/2025 12/12/2024 Tobacco Screening 12/12/2025 12/12/2024 Zoster Vaccines (1 of 2) 07/17/2039 RSV Patients and Patients Aged 60 years or older (1 - 1-dose 75+ series) 2064 HIB Vaccines Aged Out No longer eligi ble based on patient's age to complete this topic Hepatitis A Vaccines Aged Out No long er eligible based on patient's age to complete this topic IPV Vaccines Aged Out No longer eligi ble based on patient's age to complete this topic Meningococcal B Vaccine Aged Out No l onger eligible based on patient's age to complete this topic Meningococcal Vaccine Aged Out No alejandra mata eligible based on patient's age to complete this topic RSV under 20 months Aged Out No longe r eligible based on patient's age to complete this topic Rotavirus Vaccines Aged Out No longer eligible based on patient's age to complete this topic Insurance [facility] C[facility] [place] ST[place] ADULT Care Teams Power Washer Relationship Specialty Start Date End Date Simi Dawn NP [address] [place] [address] PCP - General Family Medicine 05/06/24
--- OUTSIDE RECORDS SUMMARY | 2025-02-21 18:45 | XMS_ITS | Encounter Summary ---
Author Organization [employer] Address [address] [place] [address] Care Team Providers Care Concrete Smoother Name Role Phone Simi Dawn NP Primary Care Provider [phone] Reason for Visit * Reason Comments Pre-visit Planning SDOH unable to reach LVM Encounter Details Date Type Department Care Team (Late st Contact Info) Description 02/20/2025 Patient Outreach [facility] [address] [place] [address] Simi Dawn NP [address] [place] [address] Pre-visit Planning ([facility]OH unable to reach LVM ) Social History Tobacco Use Types Packs/Day Years Used Date Smoking Tobacco: Every Day Cigarettes Passive Smoke Exposure: Current Smokeless Tobacco: Never Depression Answer Date Recorded Patient Health Questionnaire-9 Score 7 12/12/2024 Patient Health Questionnaire-9 Score 7 12/12/2024 Last PHQ-9: Questionnaire Data Not on file 0 12/12/2024 Housing Stability Answer Date Recorded What is your housing situation today? I do not have housing (Staying with others, in a hotel, in a fpc, living outside on the street, on a [...] PM EST documented as of this encounter Progress Notes * Nannette Georges - 02/20/2025 4:04 PM EST BERTHA Ortiz placed outbound call to patient to complete pre-visit planning. No answer at this time. Patient name and were not confirmed. CC left voicemail requesting return call. Direct contactinformation provided. documented in this encounter Plan of Treatment Upcoming Encounters Date Type Department Care Team ([facility] st Contact Info) Description 02/27/2025 2:00 PM EST Office Visit [facility] MED[facility] [address] [place] [address] Simi Dawn NP [address] [place] [address] documented as of this encounter Visit Diagnoses Not on filedocumented in this encounter Additional Health Concerns Assessment Noted Time PHQ-9 Depression Total Score: 7 12/13/19 11:12 AM EDT documented as of this encounter Care Teams Concrete Smoother Relationship Specialty Start Date End Date Simi Dawn NP [address] [place] [address] PCP - General Family Medicine 05/06/24 documented as of this encounter
--- NOTE | 2025-02-21 18:46 | PC.NURSE ---
no changed noted after narcan
[2025-02-21 18:48] LABS: Anion Gap 11 (12-20); Blood Urea Nitrogen 12 mg/dL (9-16); Calcium 8.3 mg/dL (8.4-10.2); Carbon Dioxide 23 mmol/L (22-29); Chloride 113 mmol/L (96-108); Creatinine Clr Calc Pharmacy 72.4; Estimated Glomerular Filt Rate 55; Potassium 3.6 mmol/L (3.3-5.1); Sodium 143 mmol/L (135-145)
--- NOTE | 2025-02-21 19:21 | PC.NURSE ---
this RN assumed car of this pt @1900, pt noted to be laying semi-parmar's in hospital stretcher, connected to SPO2 monitoring, HR noted to be 82 BPM, and SPO2 100% no respiratory distress noted at this time
[2025-02-21 20:09] VITALS: BP 136/84; PULSE 78; RESP 16; TEMP 36.7; O2SAT 99
[2025-02-21] MEDS: Naloxone HCl Nasal TAKE HOME 4 MG SPRAY 8 MG NOSTRILALT (21:15)
[2025-02-21 21:36] VITALS: BP 136/84; PULSE 78; RESP 16; TEMP 36.7; O2SAT 99
== END 2025-02-21 21:36 | disposition home or self-care (01) ==
PROVIDERS: Emergency Provider Student in an Organized Health Care Education/Training Program
DX: R41.82 Altered mental status, unspecified (principal); F12.90 Cannabis use, unspecified, uncomplicated; F11.90 Opioid use, unspecified, uncomplicated
CPT/HCPCS: 36415; 80048; 85025; 96374; 99284; J2312